=== PATIENT | male | born 1990 | race Caucasian/White ===

== ENCOUNTER 2022-07-07 15:53 | Emergency (ER) | payer OTHER, MEDICAID ==
[~2022-07-07] VITALS: Ht 193 cm; Wt 88.5 kg
[2022-07-07 15:55] VITALS: BP_SYST 124
--- NOTE | 2022-07-07 15:55 | NUR ---
PT BROUGHT IN BY [facility], PLACED IN BED AND TRIAGED. PT UNCOOPERATIVE WITH TRIAGE QUESTIONS AND ARGUING WITH MEDICS.
--- NOTE | 2022-07-07 16:20 | NUR ---
ASSUMED CARE OF HIGHLY AGITATED PT WHO WAS BROUGHT IN MY EMS FOR AN OVERDOSE. WHEN PATIENT WAS ASKED WHAT DRUG HE USED WHICH LED TO THE OVERDOSE PT STATED, "I ONLY TOOK FUCKIN METHADONE." PT RESTLESS AND TURNING LEFT AND RIGHT IN BED NONSTOP, AND PT IS ALSO STANDING UP AND OPENING AND CLOSING CURTAINS EVEN THOUGH HE HAS BEEN ASKED TO STAY IN BED FOR SAFETY. PT IS SPEAKING IN A LOUD VOICE TO STAFF AND WHEN PT WAS ASKED ASSESSMENT QUESTIONS PT RESPONDED, "NO I DONT HAVE CHEST PAIN OR TROUBLE BREATHING, I AM JUST FUCKIN ANGRY THAT THEY GAVE ME FUCKIN NARCAN WHICH IS PUTTING ME IN FUCKIN WITHDRAWAL OF MY METHADONE WHICH I HAVE BEEN TAKING FOR 5 YEARS." PT WILL NOT ALLOW NURSE TO TOUCH HIM . PT APPEARS DISHEVELED; NO DEFORMITY OR SWELLING OR INJURY OBSERVED TO EXTREMITIES. PT IS ALERT AND HAS UNLABORED BREATHING, IS MANAGING SECRETIONS, AND AMBULATES WITH A STEADY GAIT.
--- NOTE | 2022-07-07 16:41 | NUR ---
EVALUATING PT AT BEDSIDE. PT REMAINS AGITATED BUT PER COMFORT AND REQUEST, THE LIGHTS WERE TURNED OFF TO DECREASE STIMULI AND PT PROVIDED WATER, POSITION OF THE BED ADJUSTED.
[2022-07-07] MEDS ORDERED: IBUPROFEN 600 MG TABLET PO ONE (17:00)
[2022-07-07] MEDS ORDERED: NALO4SPR NS (17:28)
--- NOTE | 2022-07-07 17:32 | NUR ---
SPOKE WITH [facility] AGUSTIN X2, CAR WAS TOWED TO BECKWITH IN UNION CONFIRMED WITH . PT CURSING AND SCREAMING LOUDLY
--- NOTE | 2022-07-07 17:37 | NUR ---
Patient given written and verbal discharge instructions and verbalizes understanding. ER MD discussed with patient the results and treatment provided. Patient in stable condition. ID arm band removed. IV catheter removed intact and dressing applied, no active bleeding. Opportunity for questions provided and answered. Medication side effect fact sheet provided.
== END 2022-07-07 17:36 | disposition home or self-care (01) ==
LOC: SED 15:53
DX: R06.02 Shortness of breath (principal); T50.7X1A Poisoning by analeptics and opioid receptor antagonists, accidental (unintentional), initial encounter; Z79.899 Other long term (current) drug therapy; Y92.89 Other specified places as the place of occurrence of the external cause
CPT/HCPCS: 99283